=== PATIENT | female | born 1980 | race Two or more races ===

== ENCOUNTER 2017-02-22 13:29 | Emergency (ER) | payer MEDICAID, OTHER ==
[~2017-02-22] VITALS: Ht 154.9 cm; Wt 66.2 kg
[2017-02-22 13:32] VITALS: BP 119/60
== END 2017-02-22 13:53 | disposition home or self-care (01) ==
LOC: ER 13:31
DX: N39.0 Urinary tract infection, site not specified (principal)
CPT/HCPCS: A4606; Z7610